=== PATIENT | female | born 1955 | race African-American/Black ===

== ENCOUNTER → 2016-07-16 | Outpatient (CLI) | payer OTHER ==
--- NOTE | ~2016-07-16 | MY11 ---
[facility] A Service of [facility] & [facility] / [facility] RADIOLOGY TEXT RESULTS PATIENT: HIRAM LINDSAY LOCATION: [facility] : 55 UNIT #: [id number] AGE: [address]: Kathryn Johnson MD SEX: F ORDER DR: [id number] [facility] [address] [place], [place] [address] [id number] O MR#: [id number] Acc #: [id number] NAME: HIRAM LINDSAY : 1955 SEX: F STUDY DATE/TIME: 07/16/2016 16:40 UNIT: [facility] ROOM: STUDY DESCRIPTION: MY Mammogram Screening Dig Vinod Attending Physician: Kathryn Johnson M.D. Ordering Physician: Kathryn Johnson M.D. Primary Care Physician: Kathryn Johnson M.D. MEDICAL IMAGING REPORT This report is preliminary unless electronic signature is present EXAM Digital screening mammogram, 07/16/2016 HISTORY 61-year-old woman no risk elevation. Annual screening. COMPARISON 05/15/2008, 12/28/2012. Followup diagnostic right breast mammogram 01/21/2013. FINDINGS Digital imaging of each breast was completed utilizing screening protocol. Review includes FDA-approved CAD device. Breast parenchyma is heterogeneously dense with subareolar duct prominence bilaterally. Small nodule previously noted in the right breast is no longer identified. There are no suspicious mass characteristics and no interval occurring microcalcifications. I see no architectural disturbance. IMPRESSION Benign mammogram. Annual screening recommended. Patients over the age of 40 are entered into a reminder system with target due date for the next mammogram. A result letter will also be sent to the patient. BIRADS: 2 Benign Finding Dictated by... Drew Atkins M.D. THIS IS AN ELECTRONICALLY VERIFIED REPORT [facility] A Service of [facility] & [facility] / [facility] RADIOLOGY TEXT RESULTS PATIENT: HIRAM LINDSAY LOCATION: [facility] : 55 UNIT #: [id number] AGE: [address]: Kathryn Johnson MD SEX: F ORDER DR: Drew Atkins M.D. at 07/28/2016 8:10 AM Devon TD: 07/17/2016 08:36 JOB #: [id number] MEDICAL IMAGING REPORT Page 1 of 1 COPY
== END | disposition home or self-care (01) ==
LOC: CWCC 07-14 15:45
DX: Z12.31 Encounter for screening mammogram for malignant neoplasm of breast (principal)
CPT/HCPCS: G0202